=== PATIENT | female | born 1950 | race Caucasian/White ===

== ENCOUNTER 2025-01-07 13:57 | Emergency (ER) | payer MEDICARE, SELFPAY ==
[2025-01-07 14:26] VITALS: BP 86/51; PULSE 102; RESP 18; TEMP 36.5; O2SAT 100
--- NOTE | 2025-01-07 14:29 | ED.GENADULT ---
HPI - General Adult General Chief complaint: Headache Stated complaint: Headache Time Seen by Provider: 01/07/25 14:35 Mode of arrival: ambulatory Limitations: no limitations History of Present Illness HPI narrative: 74-year-old female with history of dementia presents with concern for chronic headache. She reports she has been having a headache for months. Reports the headache is daily and will start soon after she wakes up. She recently moved out of the [place] [facility] into her sister's house. Her sister has been giving her 1 g of Tylenol 3 times a day every day. She denies runny nose, stuffy nose, cough, sore throat, postnasal drainage. She denies any changes in speech, swallowing, vision. She uses a wheelchair for mobility but denies any change in strength in any extremity. MD complaint: Headache Related Data Home Medications ?Medication ?Instructions ?Recorded ?Confirmed ?Last Taken ?Type insulin glargine 100 unit/mL (3 15 unit subcut QPM 01/07/25 01/07/25 Unknown History mL) subcutaneous pen (Lantus Solostar U-100 Insulin) insulin lispro 100 unit/mL 1 sliding scale dose subcut 01/07/25 01/07/25 Unknown History subcutaneous pen (Humalog KwikPen USEASDIRECTD (U-100) Insulin) lansoprazole 30 mg capsule,delayed 30 mg PO DAILY 01/07/25 01/07/25 Unknown History release sertraline 50 mg tablet 50 mg PO DAILY 01/07/25 01/07/25 Unknown History Allergies Allergy/AdvReac Type Severity Reaction Status Date / Time codeine Allergy Unknown Unknown Verified 01/07/25 14:32 epinephrine Allergy Unknown Unknown Verified 01/07/25 14:32 guaifenesin Allergy Unknown Unknown Verified 01/07/25 14:32 hydromorphone (From Dilaudid) Allergy Unknown Unknown Verified 01/07/25 14:32 lidocaine Allergy Unknown Unknown Verified 01/07/25 14:32 lisinopril Allergy Unknown Unknown Verified 01/07/25 14:32 Sulfa (Sulfonamide Allergy Unknown Unknown Verified 01/07/25 14:32 Antibiotics) Review of Systems Review of Systems: CONSTITUTIONAL: Denies malaise, chills, sweats, or fever. EYES: Denies visual changes ENT: Denies rhinorrhea, congestion, sinus pain, otalgia or sore throat. CARDIOVASCULAR: Denies chest pain, palpitations, or edema. RESPIRATORY: Denies cough or dyspnea. GASTROINTESTINAL: Denies abdominal pain, nausea, vomiting GENITOURINARY: Denies dysuria, urgency, frequency, or hematuria. MUSCULOSKELETAL: Denies back pain, joint pain, or myalgia. NEUROLOGIC: Denies numbness, weakness. Reports headache. All systems reviewed & are unremarkable except as noted in HPI and below PMFSH Comments At time of signature, agree with nursing past medical, surgical, social and family history. There is no relevant family history pertinent to the presenting complaint Exam Narrative: GENERAL: Well-appearing, well-nourished, and in no acute distress. HEAD: Normocephalic, atraumatic. EYES: PERRLA, sclera clear. No nystagmus. ENT: Nares clear. Mucous membranes moist. TM pearly jernigan with sharp light reflex bilaterally; no tragal tenderness. Oropharynx without erythema or lesions. Tonsils not enlarged and without exudate. NECK: Supple. CHEST: No respiratory distress. Clear to auscultation. No bony deformities, no asymmetry. Speaks in full sentences. HEART: Regular rate and rhythm. No murmur heard. Normal peripheral pulses. EXTREMITIES: Normal range of motion. No edema. Normal strength and sensation. SKIN: Warm, dry, no visible rash. NEURO: Alert and oriented x3. No focal deficits. Cranial nerves II through XII grossly intact PSYCH: Normal mood and affect Course Course Emergency Course: I explained a limited diagnostic capability at the urgent care to the patient and her sister, her exam today is unremarkable. Some suggestions were given for [id number] medications and referral to primary care. She has a new primary care set up appointment in a few weeks. She was given reasons to go to the emergency room if her symptoms worsen or change. Patient is aware of, understands and agrees to treatment plan. Anticipatory guidance given. Patient agrees to follow-up as directed and is aware of reasons to seek care at the emergency department. Portions of this record may have been created with voice recognition software Level of Care: Express Care Visit Vital Signs Vital signs: Vital Signs Temperature 97.7 F 01/07/25 14:26 Pulse Rate 102 H 01/07/25 14:26 Respiratory Rate 18 01/07/25 14: Blood Pressure 86/51 L 01/07/25 14:26 Pulse Oximetry 100 08/22/25 14:26 Oxygen Delivery Room Air 01/07/25 14:26 Temperature 97.7 F 01/07/25 14:26 Pulse Rate 102 H 01/07/25 14:26 Respiratory Rate 18 01/07/25 14:26 Blood Pressure 86/51 L 01/07/25 14:26 Pulse Oximetry 100 01/07/25 14:26 Oxygen Delivery Room Air 01/07/25 14:26 Reviewed. Medical Decision Making MDM Narrative Medical decision making narrative: The patient was evaluated by myself in the [facility] care. History is obtained from patient who is an independent historian and physical exam was performed.? Available medical records were reviewed at this time. ? Exam findings show no acute concerns or changes; patient is non-toxic appearing and is in no distress. Patient is appropriate for outpatient treatment and follow-up. ? I have evaluated and discussed social determinants of health with the patient that could potentially impact subsequent diagnosis and treatment plans. ? Differential diagnosis and treatment plan were discussed with the patient. Patient agrees with discussion and after shared medical decision making agrees with plan of care. All questions were answered to the patient's satisfaction. Vital Signs Vital Signs: Vital Signs Temperature 97.7 F 01/07/25 14:26 Pulse Rate 102 H 01/07/25 14:26 Respiratory Rate 18 01/07/25 14:26 Blood Pressure 86/51 L 01/07/25 14:26 Pulse Oximetry 100 01/07/25 14:26 Oxygen Delivery Room Air 01/07/25 14:26 Temperature 97.7 F 01/07/25 14:26 Pulse Rate 102 H 01/07/25 14:26 Respiratory Rate 18 01/07/25 14:26 Blood Pressure 86/51 L 01/07/25 14:26 Pulse Oximetry 100 01/07/25 14:26 Oxygen Delivery Room Air 01/07/25 14:26 Critical Care Time Critical Care Time Critical Care Time: No Discharge Plan Discharge Clinical Impression: Chronic headache Patient Disposition: Home Condition: Stable Instructions: General Headache (ED) Additional Instructions: Take a break from taking Tylenol daily. Take ibuprofen NEEDED for headache or. You can consider trying an antihistamine such as Zyrtec, if you do not notice a difference in your headaches in a week you can stop this medication. 1) Please follow-up with your primary care doctor for further evaluation. 2) If you have any worsening of symptoms or any other urgent concerns please go to the ER. 3) Please take medications as prescribed and continue taking your home medications as usual. 4) Please read and follow information included in discharge instructions. Patient Language: Com[place] Prescriptions: New ibuprofen 600 mg tablet 600 mg PO QID PRN (Reason: pain) Qty: 30 0RF No Action insulin lispro [Humalog KwikPen Insulin] 100 unit/mL insulin pen 1 sliding scale dose subcut USEASDIRECTD insulin glargine [Lantus Solostar U-100 Insulin] 100 unit/mL (3 mL) insulin pen 15 unit subcut QPM sertraline 50 mg tablet 50 mg PO DAILY lansoprazole 30 mg capsule,delayed release(DR/EC) 30 mg PO DAILY Follow-up/Referrals: PHYSICIAN,ELECTRONICS COMPUTER MECHANIC [Primary Care Provider, Internal Medicine] Luan Montaño MD [Physician, Family Practice] Time of Disposition: 14:49
== END 2025-01-07 14:51 | disposition home or self-care (01) ==
PROVIDERS: Emergency Provider Nurse Practitioner
DX: R51.9 Headache, unspecified (principal); F03.90 Unspecified dementia, unspecified severity, without behavioral disturbance, psychotic disturbance, mood disturbance, and anxiety; I11.0 Hypertensive heart disease with heart failure; I50.9 Heart failure, unspecified; I25.10 Atherosclerotic heart disease of native coronary artery without angina pectoris; Z95.1 Presence of aortocoronary bypass graft; E78.00 Pure hypercholesterolemia, unspecified; K21.9 Gastro-esophageal reflux disease without esophagitis; M19.90 Unspecified osteoarthritis, unspecified site; E11.9 Type 2 diabetes mellitus without complications; Z79.4 Long term (current) use of insulin; F41.9 Anxiety disorder, unspecified; F32.A Depression, unspecified
CPT/HCPCS: 99203; G0463

== ENCOUNTER 2025-01-31 15:29 | Outpatient (CLI) | payer MEDICARE, SELFPAY ==
[2025-01-31 16:15] LABS: Hematocrit 29.9 % (37.0-47.0); Hemoglobin 9.0 g/dL (12.0-15.0); Immature Granulocyte Percent A 0.4 % (0-0.5); Lymphocytes Absolute Auto 1.43 K/mm3 (0.9-3.2); Mean Corpuscular HGB Conc 30.1 g/dl (32-36); Mean Corpuscular Hemoglobin 25.1 pg (26-34); Mean Corpuscular Volume 83.3 fl (80-100); Nucleated Red Blood Cells Absolute Auto 0.000 K/mm3 (0.0-0.012); Nucleated Red Blood Cells Perc 0.0 % (0.0-0.2); Platelet Count Result 351 k/mm3 (150-375); Red Blood Count 3.59 M/mm3 (4.2-5.4); White Blood Count 9.0 K/mm3 (4.5-10.0)
[2025-01-31 16:26] LABS: Alanine Aminotransferase 13 U/L (6-35); Albumin Level 3.7 g/dL (3.5-5.1); Alkaline Phosphatase 99 U/L (38-126); Anion Gap 9 mmol/L (4-12); Aspartate Amino Transferase 29 U/L (14-36); Bilirubin,Total 0.3 mg/dL (0.2-1.3); Blood Urea Nitrogen 24 mg/dL (7-17); Calcium 9.0 mg/dL (8.4-10.2); Carbon Dioxide 24 mmol/L (22-30); Chloride 104 mmol/L (98-107); Estimated Glomerular Filt Rate 60; Glucose 184 mg/dL (65-110); Potassium 4.0 mmol/L (3.4-5.0); Sodium 137 mmol/L (137-145); Total Protein 7.4 g/dL (6.3-8.2)
[2025-01-31 16:46] LABS: Free T4 Free Thyroxine 1.35 ng/dL (0.78-2.19)
[2025-01-31 16:48] LABS: Hemoglobin A1C 5.4 % (<5.7)
[2025-01-31 16:56] LABS: Syphilis IgG/IgM Antibody Non-Reactive (Nonreactive)
[2025-01-31 17:02] LABS: Thyroid Stimulating Hormone 2.980 uIU/mL (0.465-4.680)
[2025-01-31 17:38] LABS: Vitamin B12 278.0 pg/mL (239-931)
== END 2025-01-31 15:30 | disposition home or self-care (01) ==
PROVIDERS: PCP Family Medicine
DX: E11.8 Type 2 diabetes mellitus with unspecified complications (principal); Z96.41 Presence of insulin pump (external) (internal); R41.3 Other amnesia
CPT/HCPCS: 36415; 80053; 82607; 82746; 83036; 84439; 84443; 85025; 86593

== ENCOUNTER 2025-03-23 09:39 | Outpatient (CLI) | payer MEDICARE, SELFPAY ==
--- NOTE | ~2025-03-23 | MR_ITS ---
EXAMINATION: MR brain/brain stem wo con DATE: 03/23/2025 10:46 INDICATION: Unspecified dementia, unspecified severity. TECHNIQUE: Magnetic resonance imaging (MRI) of the brain and brainstem was performed without intravenous contrast. COMPARISON: None. FINDINGS: There is an old infarct in right occipital lobe. There is a small old infarct in left cerebellum. There is an old infarct in right thalamus. There are scattered areas of nonspecific increased T2-weighted signal intensity in the cerebral white matter. There is no intracranial hemorrhage, acute infarction, or abnormal intracranial mass lesion. The ventricles are normal in size. The paranasal sinuses are clear. There are likely changes of ocular lens replacement surgeries. The mastoid air cells are normal. IMPRESSION: 1. 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 2. Moderate nonspecific cerebral white matter disease, which likely represents chronic small vessel ischemic disease. Reviewed, dictated and finalized at location [facility]
== END 2025-03-23 09:40 | disposition home or self-care (01) ==
PROVIDERS: PCP Family Medicine
DX: F03.90 Unspecified dementia, unspecified severity, without behavioral disturbance, psychotic disturbance, mood disturbance, and anxiety (principal); R44.3 Hallucinations, unspecified; R90.82 White matter disease, unspecified
CPT/HCPCS: 70551